=== PATIENT | male | born 1955 | race American Indian/Alaskan Native ===

== ENCOUNTER 2017-03-31 00:09 | Emergency (ER) | payer BC, MEDICARE ==
[2017-03-31 00:09] VITALS: BMI 32.3
[2017-03-31 00:57] VITALS: PULSE 70
--- NOTE | 2017-03-31 02:27 | ED PDOC ---
Arrival/HPI - General Chief Complaint: Lower Extremity Problem/Injury Time Seen by Provider: 03/31/17 01:57 Historian: Patient - History of Present Illness Narrative History of Present Illness (Text): 03/31/17 02:23 Devante Huddleston is a 61 year old male, whose past medical history includes hypertension and aortic valve replacement, who presents to the Emergency Room complaining of transient swelling to bilateral feet since yesterday. Patient reports associated posterior right thigh pain described as soreness after using the elliptical yesterday. Patient also notes occasional dry cough. The patient denies any fever, chills, chest pain, shortness of breath, nausea, vomiting, diarrhea, headache, dizziness, or any other complaints. PMD: Dr. Roel Orozco [employer]: Dr. Agatha Schneider Time/Duration: Other (yesterday) Symptom Onset: Gradual Symptom Course: Intermittent (Transient) Activities at Onset: Rest, Light Context: Home Past Medical History - Provider Review Nursing Documentation Reviewed: Yes - Cardiac Hx Cardiac Disorders: Yes Hx Hypertension: Yes - Pulmonary Hx Respiratory Disorders: No - Neurological Hx Paralysis: No - Hematological/Oncological Hx Blood Transfusions: No Hx Blood Transfusion Reaction: No - Musculoskeletal/Rheumatological Hx Musculoskeletal Disorders: No - Psychiatric Hx Emotional Abuse: No Hx Physical Abuse: No Hx Substance Use: No - Surgical History Hx Valve Replacement: Yes Other/Comment: aneurysm repair - Anesthesia Hx Anesthesia: Yes - Suicidal Assessment Feels Threatened In Home Enviroment: No Family/Social History - Physician Review Nursing Documentation Reviewed: Yes Family/Social History: Unknown Family HX Smoking Status: Never Smoked Hx Alcohol Use: No Hx Substance Use: No Allergies/Home Meds Allergies/Adverse Reactions: Allergies No Known Allergies Allergy (Verified 04/27/15 12:28) Home Medications: Home Meds Medication Instructions Recorded Confirmed Aspirin [Ecotrin] 81 mg PO DAILY 03/31/17 03/31/17 Olmesartan/Hydrochlorothiazide 1 each PO DAILY 03/31/17 03/31/17 [Olmesartan-Hctz 40-25 mg Tab] [id number] Ethyl Esters 1 GM 1 gm PO BID 03/31/17 03/31/17 [Lovaza] Pitavastatin Calcium [Livalo] 2 mg PO DAILY 03/31/17 03/31/17 Review of Systems - Physician Review All systems were reviewed & negative as marked: Yes - Review of Systems Constitutional: Normal. absent: Fevers Eyes: Normal ENT: Normal Respiratory: Cough. absent: SOB Cardiovascular: Normal. absent: Chest Pain Gastrointestinal: Normal. absent: Abdominal Pain, Diarrhea, Nausea, Vomiting Genitourinary Male: Normal. absent: Dysuria, Frequency, Hematuria, Urinary Output Changes Musculoskeletal: Other (+bilateral swelling to feet, +posterior right thigh pain ). absent: Back Pain, Neck Pain Skin: Normal. absent: Rash Neurological: Normal. absent: Headache, Dizziness Endocrine: Normal Hemo/Lymphatic: Normal Psychiatric: Normal Physical Exam Vital Signs Reviewed: Yes Vital Signs Temp Pulse Resp BP Pulse Ox 03/31/17 00:57 98.4 F 70 16 156/75 H 97 Temperature: Afebrile Blood Pressure: Normal Pulse: Regular Respiratory Rate: Normal Appearance: Positive for: Well-Appearing, Non-Toxic, Comfortable Pain Distress: None Mental Status: Positive for: Alert and Oriented X 3 - Systems Exam Head: Present: Atraumatic, Normocephalic Pupils: Present: PERRL Extroacular Muscles: Present: EOMI Conjunctiva: Present: Normal Mouth: Present: Moist Mucous Membranes Neck: Present: Normal Range of Motion Respiratory/Chest: Present: Clear to Auscultation, Good Air Exchange. No: Respiratory Distress, Accessory Muscle Use Cardiovascular: Present: Regular Rate and Rhythm, Normal S1, S2. No: Murmurs Abdomen: Present: Normal Bowel Sounds. No: Tenderness, Distention, Peritoneal Signs Upper Extremity: Present: Normal Inspection. No: Cyanosis, Edema Lower Extremity: Present: Normal Inspection, NORMAL PULSES, Normal ROM, Neurovascularly Intact, Capillary Refill < 2 s. No: Edema, Cyanosis, Gaby's Sign, Tenderness, Swelling, Erythema, Deformity, Temperature Abnormalties Neurological: Present: GCS=15, CN II-XII Intact, Speech Normal, Motor Func Grossly Intact, Normal Sensory Function Skin: Present: Warm, Dry, Normal Color. No: Rashes Psychiatric: Present: Alert, Oriented x 3, Normal Insight, Normal Concentration Medical Decision Making ED Course and Treatment: 03/31/17 02:23 Impression: 61 year old male c/o transient swelling to bilateral feet and posterior right thigh pain. Plan: -- US Duplex Lower Extremities -- Labs -- Reassess and disposition Prior Visits: Notes and results from previous visits were reviewed. Progress Notes: 03/31/17 04:31 Reviewed sono, US Duplex Lower Extremities shows no evidence of DVT. - Lab Interpretations Lab Results: 03/31/17 03:10 03/31/17 03:10 Lab Results 03/31/17 03:10: WBC 6.1, RBC 3.65, Hgb 11.3 L, Hct 33.6 L, MCV 92.1, MCH 31.0, MCHC 33.6, RDW 12.6, Plt Count 176, MPV 10.1 03/31/17 03:10: Sodium 139, Potassium 3.8, Chloride 101, Carbon Dioxide 30, Anion Gap 12, BUN 16, Creatinine 1.1, Est GFR ( Amer) > 60, Est GFR (Non- Af Amer) > 60, Random Glucose 98, Calcium 9.8, Total Bilirubin 0.6, AST 69 H, ALT 40, Alkaline Phosphatase 73, Total Protein 7.7, Albumin 4.3, Globulin 3.4, Albumin/Globulin Ratio 1.3 03/31/17 03:10: PT 10.9, INR 1.01, APTT 28.7 I have reviewed the lab results: Yes - RAD Interpretation Radiology Orders: 03/31/17 02:31 DUPLEX LOWER EXTRM VEIN BILAT [US] Stat - Scribe Statement The provider has reviewed the documentation as recorded by the Marcelino Child Provider Attestation: All medical record entries made by the Scribe were at my direction and personally dictated by me. I have reviewed the chart and agree that the record accurately reflects my personal performance of the history, physical exam, medical decision making, and the department course for this patient. I have also personally directed, reviewed, and agree with the discharge instructions and disposition. Disposition/Present on Arrival - Present on Arrival Any Indicators Present on Arrival: No History of DVT/PE: No History of Uncontrolled Diabetes: No Urinary Catheter: No History of Decub. Ulcer: No History Surgical Site Infection Following: None - Disposition Have Diagnosis and Disposition been Completed?: Yes Diagnosis: Leg muscle spasm Disposition: HOME/ ROUTINE Disposition Time: 05:09 Patient Plan: Discharge Patient Problems: Current Active Problems Problem Status Onset Leg muscle spasm Acute Condition: GOOD Discharge Instructions (ExitCare): Muscle Spasm (ED) Additional Instructions: Take meds as prescribed/avoid any strenuous physical activity next few days/ follow up with your doctor this week Prescriptions: Cyclobenzaprine [Cyclobenzaprine HCl] 10 mg PO TID PRN #15 tab PRN Reason: Muscle Spasm
[2017-03-31 03:34] LABS: HEMATOCRIT 33.6 % (42.0-52.0); MEAN CELL VOLUME 92.1 fL (80.0-105.0); MEAN CORPUSCULAR HGB CONC 33.6 g/dl (31.0-37.0); MEAN PLATELET VOLUME 10.1 fl (7.0-11.0); RED CELL DISTRIBUTION WIDTH 12.6 % (11.5-14.5); WHITE BLOOD COUNT 6.1 10^3/ul (4.5-11.0)
[2017-03-31 03:35] LABS: INR 1.01 (0.93-1.08); PARTIAL THROMBOPLASTIN TIME 28.7 Seconds (23.7-30.8)
[2017-03-31 03:46] LABS: ALB/GLOB RATIO 1.3 (1.1-1.8); ALKALINE PHOSPHATASE 73 U/L (38-133); ALT/SGPT 40 U/L (7-56); AST/SGOT 69 U/L (15-59); BILIRUBIN,TOTAL 0.6 mg/dL (0.2-1.3); BLOOD UREA NITROGEN 16 mg/dL (7-21); CALCIUM 9.8 mg/dL (8.4-10.5); CARBON DIOXIDE 30 mmol/L (21-33); CHLORIDE 101 mmol/L (95-110); GFR AFRICAN-AMERICAN > 60; GLUCOSE,RANDOM 98 mg/dL (70-110); POTASSIUM 3.8 mmol/L (3.6-5.0); SODIUM 139 mmol/L (132-148); TOTAL PROTEIN 7.7 g/dL (5.8-8.3)
[2017-03-31 05:46] VITALS: BP 146/87; RESP 18; TEMP 97.7; O2SAT 98
--- NOTE | 2017-03-31 09:21 | US ---
HISTORY: Leg pain and swelling. Evaluate for DVT PHYSICIAN(S): Jamir Huddleston MD. TECHNIQUE: Duplex sonography and color-flow Doppler with graded compression were used to evaluate the deep venous systems of both lower extremities. FINDINGS: The visualized deep venous systems of both lower extremities are sonographically normal and compressible. Normal wave forms and augmentation are seen. There is no sonographic evidence for deep venous thrombosis in the visualized segments of both lower extremities. IMPRESSION: No sonographic evidence for deep venous thrombosis in the visualized segments of both lower extremities.
== END 2017-03-31 05:20 | disposition home or self-care (01) ==
LOC: ED 00:09
DX: M62.831 Muscle spasm of calf (principal); I10 Essential (primary) hypertension; Z95.2 Presence of prosthetic heart valve

== ENCOUNTER 2019-02-05 06:09 | Outpatient (CLI) | payer BC | END 2019-02-05 06:10 | disposition home or self-care (01) | LOC: CARDIO 06:09 ==

== ENCOUNTER 2019-02-08 06:03 | Day surgery (SDC) | payer BC ==
[2019-02-05 14:07] VITALS: BMI 31.3
[2019-02-08] MEDS ORDERED: Lidocaine PF 2% (5 ml) Inj (For Cardiac Arrhy) ONE (07:00)
[2019-02-08] MEDS ORDERED: Iohexol 350mgl/ml 50 ML ONE (07:01)
[2019-02-08] MEDS ORDERED: Iohexol 350 MG/100 ML VIAL ONE (07:01)
[2019-02-08 07:17] LABS: BASO # 0.01 K/mm3 (0.0-2.0); BASO % 0.2 % (0.0-3.0); EOS # 0.1 (0.0-0.7); EOS % 1.7 % (1.5-5.0); HEMOGLOBIN 11.4 g/dL (14.0-18.0); LYMPH # 2.4 (1.2-3.4); MEAN CORPUSCULAR HEMOGLOBIN 30.2 pg (25.0-35.0); MEAN CORPUSCULAR HGB CONC 32.9 g/dl (31.0-37.0); MEAN PLATELET VOLUME 9.9 fl (7.0-11.0); MONO # 0.5 (0.1-0.6); MONO % 8.8 % (1.0-6.0); RBC 3.77 10^6/uL (3.5-6.1); RED CELL DISTRIBUTION WIDTH 12.5 % (11.5-14.5); WHITE BLOOD COUNT 5.4 10^3/uL (4.5-11.0)
[2019-02-08 07:27] LABS: INR 1.13; PARTIAL THROMBOPLASTIN TIME 35.1 Seconds (26.9-38.3); PROTHROMBIN TIME 12.8 SECONDS (9.4-12.5)
[2019-02-08 07:33] LABS: BLOOD UREA NITROGEN 13 mg/dL (7-21); CALCIUM 9.6 mg/dL (8.4-10.5); GFR NON-AFRICAN AMERICAN > 60; HDL CHOLESTEROL 51 mg/dL (29-60)
[2019-02-08 07:46] LABS: LDL CHOLESTEROL 71 mg/dL (0-129)
[2019-02-08] MEDS ORDERED: Midazolam 2 MG/2 ML VIAL ONE ×2 (07:58→08:06)
[2019-02-08] MEDS ORDERED: Sodium Chloride 0.9% 1,000 ML IV SCH (08:45)
[2019-02-08 09:08] VITALS: RESP 16; TEMP 97
[2019-02-08 10:40] VITALS: O2SAT 96
--- NOTE | 2019-02-08 10:46 | CARD ---
APPROVED REPORT Date of service: 02/08/2019 EKG Measurement Heart [id number] <Conclusion> Sinus rhythm with 1st degree AV block Possible Left atrial enlargement Right bundle branch block Abnormal ECG
--- NOTE | 2019-02-08 12:00 | CARDCATH ---
PROCEDURE DATE: 02/08/2019 PROCEDURES: 1. Left heart catheterization with coronary arteriography and supra-aortic valvular injection were performed. There were no complications. HISTORY: The patient is a 63-year-old male who presents with an abnormal stress test. The patient's past medical history includes a sedentary life, increased weight, status post aortic valve replacement for aortic stenosis. His stress test presented with a new defect in the anterior wall. Because of this, cardiac catheterization was recommended. I performed moderate sedation which included the presence of an independent trained observer that assisted in monitoring the patient's level of consciousness and physiologic status. After administration of Versed and fentanyl, my intra service time was 30 minutes. Findings on catheterization revealed a right-dominant circulation. The RCA was within normal limits. The left main artery was unremarkable. The LAD and diagonal vessels revealed intimal irregularities. In the ostium of the diagonal vessel 2, there was 50% stenosis noted. The circumflex artery and obtuse marginal branches were free of significant disease. Supra-aortic valvular injection revealed no aortic insufficiency. Angio Seal was used to close the femoral artery site. The patient tolerated the procedure well. In summary, the procedure revealed a 50% stenosis at the ostium of the diagonal vessel, with mild intimal irregularities. No critical lesions were noted. Supra-aortic valvular injection revealed no aortic insufficiency. Status post aortic valve replacement for aortic stenosis. History of AAA followed by Dr. Spears in [facility] and so far has required no surgery. Given these findings, the patient will need to undergo a cardiac risk reduction program with weight loss and begin an exercise program. Jamir Schneider MD
[2019-02-08 14:22] VITALS: BP 127/75; PULSE 70
== END 2019-02-08 16:00 | disposition home or self-care (01) ==
LOC: CATH 06:03
PROVIDERS: ATTEND Internal Medicine Cardiovascular Disease
DX: I20.0 Unstable angina (principal); I71.4 Abdominal aortic aneurysm, without rupture; E78.00 Pure hypercholesterolemia, unspecified; R94.39 Abnormal result of other cardiovascular function study; Z95.2 Presence of prosthetic heart valve
CPT/HCPCS: 36415; 80048; 80061; 85025; 85610; 85730; 86850; 86900; 93005; 93454; 93567; 99152; 99153; C1769; C2629; J1644; J2250; J3010; J7030; J7040; Q9967